=== PATIENT | female | born 1990 | race Two or more races ===

== ENCOUNTER 2024-09-24 18:05 | Inpatient (IN) | payer MEDICAID, OTHER ==
[~2024-09-24] VITALS: Ht 175.3 cm; Wt 101.2 kg
--- NOTE | 2024-09-24 18:37 | ED.PDOC ---
History of Present Illness HPI Comments 33-year-old female who came to ER for shortness of breath. Patient just delivered twin pregnancies 6 days ago, 1st 1 via normal delivery, 2nd 1 via C- section. Patient states she was preeclamptic during that time. Ever since the delivery, patient states she has been short of breath, and easily fatigued. Denies any fever or acute chest pains. Patient is saturating 98% on room air on arrival, the blood pressure of 150/98 mmHG Chief Complaint: Shortness of Breath Time Seen by MD: 18:37 Reviewed Notes: Nurses Notes Allergies: Coded Allergies: NO KNOWN ALLERGIES (Unverified , 09/24/24) Information Source: Patient Mode of Arrival: Ambulatory Severity: Moderate Timing: Days Duration: Since onset Prehospital treatment: None Medication Refill: For: Other Past Medical History Past Medical History (Other): Preeclampsia Surgical History: SPICE BLENDER History: Denies all SPICE BLENDER Hx Family History Family History: Reviewed,noncontributory to illness Social History Smoker: Non-Smoker Alcohol: Denies ETOH Use Drugs: Denies Drug Use Lives In: Home Constitutional: reports: fatigue, weakness; denies: chills, diaphoresis, fever, malaise, sweats, others EENTM: denies: blurred vision, double vision, ear bleeding, ear discharge, ear drainage, ear pain, ear ringing, eye pain, eye redness, hearing loss, mouth pain, mouth swelling, nasal discharge, nose bleeding, nose congestion, nose pain, photophobia, tearing, throat pain, throat swelling, voice changes, others Respiratory: reports: shortness of breath, SOB with excertion; denies: cough, hemoptysis, orthopnea, SOB at rest, stridor, wheezing, others Cardiovascular: denies: chest pain, dizzy spells, diaphoresis, Dyspnea on exertion, edema, irregular heart beat, left arm pain, lightheadedness, palpitations, PND, syncope, others Gastrointestinal: denies: abdomen distended, abdominal pain, blood streaked bowels, constipated, diarrhea, dysphagia, difficulty swallowing, hematemesis, melena, nausea, poor appetite, poor fluid intake, rectal bleeding, rectal pain, vomiting, others Genitourinary: denies: abnormal vagina bleeding, burning, dyspareunia, dysuria, flank pain, frequency, hematuria, incontinence, pain, , vagina discharge, urgency, others Neurological: denies: dizziness, fainting, headache, left sided numbness, left sided weakness, numbness, paresthesia, pre-existing deficit, right sided numbness, right sided weakness, seizure, speech problems, tingling, tremors, weakness, others Musculoskeletal: denies: back pain, gout, joint pain, joint swelling, muscle pain, muscle stiffness, neck pain, others Integumetry: denies: bruises, change in color, change in hair/nails, dryness, laceration, lesions, lumps, rash, wounds, others Allergic/Immunocompromised: denies: Difficulty Healing, Frequent Infections, Hives, Itching, others Hematologic/Lymphatic: denies: anemia, blood clots, easy bleeding, easy bruising, swollen glands, others Endocrine: denies: excessive hunger, excessive sweating, excessive thirst, excessive urination, flushing, intolerance to cold, intolerance to heat, unexplained weight gain, unexplained weight loss, others Psychiatric: denies: anxiety, bipolar disorder, depression, hopeless, panic disorder, schizophrenia, sleepless, suicidal, others Physical Exam Exam Comments BP elevated General Appearance: Moderate Distress, Normal HEENT: Normal ENT Inspection, Pharynx Normal, TMs Normal Neck: Full Range of Motion, Non-Tender, Normal, Normal Inspection Respiratory: Chest Non-Tender, Lungs Clear, No Accessory Muscle Use, No Respiratory Distress, Normal Breath Sounds Cardiovascular: No Edema, No JVD, No Murmur, No Gallop, Normal Peripheral Pulses, Regular Rate/Rhythm Breast Exam: Deferred Gastrointestinal: No Organomegaly, Non Tender, No Pulsatile Mass, Normal Bowel Sounds, Soft Genitalia: Deferred Pelvic: Deferred Rectal: Deferred Extremities: No calf tenderness, Normal capillary refill, Normal inspection, Normal range of motion, Non-tender, No pedal edema Musculoskeletal : Apperance: Normal Neurologic: Alert, community artist II-XII nml as Tested, No Motor Deficits, Normal Affect, Normal Mood, No Sensory Deficits Cerebellar Function: Normal Reflexes: Normal Skin: Dry, Normal Color, Warm Lymphatic: No Adenopathy Was a procedure done? Was a procedure done?: No Differential Dx Considerations may include: Anemia, electrolyte imbalance, pulmonary emboli X-Ray, Labs, Meds, VS Vital Signs Date Time Temp Pulse Resp B/P (MAP) Pulse Ox O2 Delivery O2 Flow Rate FiO2 09/24/24 22:12 165/101 09/24/24 21:55 163/99 09/24/24 20:00 77 17 98 Room Air 09/24/24 20:00 97.9 77 17 165/94 (117) 98 97.9 09/24/24 19:57 165/94 09/24/24 18:33 97.5 85 20 151/95 (113) 98 Lab Test 09/24/24 21:49 09/24/24 19:49 09/24/24 18:50 Range/Units Magnesium Level 2.1 2.1 1.6-2.6 mg/dL Troponin I High Sensitivity 39 *H 42 *H </=34 ng/L White Blood Count 8.9 4.4-10.8 10^3/uL Red Blood Count 3.64 L 4.0-5.20 10^6/uL Hemoglobin 8.2 L 12.2-16.2 g/dL Hematocrit 26.5 L 36.0-46.0 % Mean Corpuscular Volume 72.8 L 80.0-100.0 fL Mean Corpuscular Hemoglobin 22.5 L 28.0-32.0 pg Mean Corpuscular Hemoglobin Concent 30.9 L 32.0-36.0 g/dL Red Cell Distribution Width 18.1 H 11.8-14.3 % Platelet Count 305 140-450 10^3/uL Mean Platelet Volume 7.5 6.9-10.8 fL Neutrophils (%) (Auto) 80.0 37.0-80.0 % Lymphocytes (%) (Auto) 12.7 10.0-50.0 % Monocytes (%) (Auto) 5.9 0.0-12.0 % Eosinophils (%) (Auto) 1.1 0.0-7.0 % Basophils (%) (Auto) 0.3 0.0-2.0 % Neutrophils # (Auto) 7.1 1.6-8.6 10 ^3/uL Lymphocytes # (Auto) 1.1 0.4-5.4 10 ^3/uL Monocytes # (Auto) 0.5 0-1.3 10 ^3/uL Eosinophils # (Auto) 0.1 0-0.8 10 ^3/uL Basophils # (Auto) 0 0-0.2 10 ^3/uL Nucleated Red Blood Cells 0.3 % D-Dimer, Quantitative 10.47 H 0.0-0.49 mg/L FEU Sodium Level 142 136-145 mmol/L Potassium Level 3.8 3.5-5.1 mmol/L Chloride Level 110 H 98-107 mmol/L Carbon Dioxide Level 23 20-31 mmol/L Anion Gap 9 5-15 Blood Urea Nitrogen 13 9-23 mg/dL Creatinine 0.63 0.550-1.02 mg/dL Glomerular Filtration Rate Calc 121 >90 mL/min BUN/Creatinine Ratio 20.6 H 10.0-20.0 Serum Glucose 77 74-106 mg/dL Calcium Level 9.1 8.7-10.4 mg/dL Total Bilirubin 0.5 0.2-1.0 mg/dL Aspartate Amino Transferase (AST) 146 H 13-40 U/L Alanine Aminotransferase (ALT) 164 H 7-40 U/L Alkaline Phosphatase 146 H 46-116 U/L B-Type Natriuretic Peptide 310.79 0-100 pg/mL Total Protein 5.6 L 5.7-8.2 g/dL Albumin 3.5 3.2-4.8 g/dL Current Medications Medications (Trade) Dose Ordered Sig/Geraldo Route Start Time Stop Time Status Last Admin Sodium Chloride 500 ml @ 500 mls/hr Q1H ONCE IV 09/24/24 18:45 09/24/24 19:44 DC 09/24/24 19:55 Magnesium Sulfate/ Dextrose 100 ml @ 100 mls/hr Q1H IV 09/24/24 18:45 09/24/24 20:44 DC 09/24/24 20:07 Hydralazine HCl (Apresoline Injection) 10 mg ONCE ONCE IV 09/24/24 18:45 09/24/24 18:46 DC 09/24/24 19:57 Acetaminophen (Tylenol Tablet) 1,000 mg ONCE ONCE PO 09/24/24 20:00 09/24/24 20:01 DC 09/24/24 20:10 Lactated Ringer's 1,000 ml @ 75 mls/hr [id number] IV 09/24/24 21:30 09/24/24 22:10 DC 09/24/24 22:04 Magnesium Sulfate 1,000 ml @ 50 mls/hr Q20H IV 09/24/24 21:30 09/24/24 22:30 Magnesium Sulfate 100 ml @ 300 mls/hr ONCE ONCE IV 09/24/24 21:30 09/24/24 21:49 DC 09/24/24 22:03 Hydralazine HCl (Apresoline Injection) 5 mg Q15MP PRN IV 09/24/24 21:45 09/24/24 23:32 Time of 1ST Reevaluation: 18:34 Reevaluation 1ST: Unchanged Time of 2ND Reevaluation: 21:00 Reevaluation 2ND: Unchanged Consultation: any commodity sales deliverer (I discussed the case with Dr London any commodity sales deliverer and she recommends magnesium infusion and ICU admission ) Patient Education/Counseling: Diagnosis, Treatment Family Education/Counseling: No Family Present Departure 1 Departure Time of Disposition: 21:00 Impression: Primary Impression: Pre-eclampsia in period Disposition: ADMITTED INPATIENT Admit to: ICU Condition: Guarded Critical Care Note Critical Care Time?: Yes (35 min-critical care time only) Critical care comment: Total critical care time: Approximately 36 minutes Due to a high probability of clinically significant, life threatening deterioration, the patient required my highest level of preparedness to intervene emergently and I personally spent this critical care time directly and personally managing the patient. This critical care time included obtaining a history; examining the patient; pulse oximetry; ordering and review of studies; arranging urgent treatment with development of a management plan; evaluation of patient's response to treatment; frequent reassessment; and, discussions with other providers. This critical care time was performed to assess and manage the high probability of imminent, life-threatening deterioration that could result in multi-organ failure. It was exclusive of separately billable procedures and treating other patients. Stability Stability form required: No Heart Score Heart Score: Heart Score Response (Comments) Value History N/A 0 EKG N/A 0 Age N/A 0 Risk Factors N/A 0 Troponin N/A 0 Total 0 I personally scribed for GUILLERMO ALFONSO MD ([email or web address]) on 09/24/24 at 18:37. Electronically submitted by Michael Root ([email or web address]). GUILLERMO ALFONSO MD Sep 24, 2024 18:37
[2024-09-24 19:15] LABS: Basophils # (auto) 0 10 ^3/uL (0-0.2); Eosinophils # (auto) 0.1 10 ^3/uL (0-0.8); White Blood Cell 8.9 10^3/uL (4.4-10.8)
[2024-09-24] MEDS: IOHEXOL 350 MG/ML 100ML IJ ONE (19:15)
[2024-09-24 19:16] LABS: Basophils % (auto) 0.3 % (0.0-2.0); Eosinophils % (auto) 1.1 % (0.0-7.0); Hematocrit 26.5 % (36.0-46.0); Hemoglobin 8.2 g/dL (12.2-16.2); Lymphocytes # (auto) 1.1 10 ^3/uL (0.4-5.4); Lymphocytes % (auto) 12.7 % (10.0-50.0); Mean Corpuscular Hemoglobin 22.5 pg (28.0-32.0); Mean Corpuscular Hgb Conc. 30.9 g/dL (32.0-36.0); Mean Corpuscular Volume 72.8 fL (80.0-100.0); Monocytes # (auto) 0.5 10 ^3/uL (0-1.3); Monocytes % (auto) 5.9 % (0.0-12.0); Neutrophils # (auto) 7.1 10 ^3/uL (1.6-8.6); Nucleated Red Blood Cells % 0.3 %; Platelet Count (auto) 305 10^3/uL (140-450); Red Blood Cells 3.64 10^6/uL (4.0-5.20); Red Cell Distribution Width 18.1 % (11.8-14.3)
[2024-09-24 19:38] LABS: Albumin 3.5 g/dL (3.2-4.8); Anion Gap 9 (5-15); BUN/Creatinine Ratio 20.6 (10.0-20.0); Bilirubin, Total 0.5 mg/dL (0.2-1.0); Blood Urea Nitrogen 13 mg/dL (9-23); Calcium 9.1 mg/dL (8.7-10.4); Carbon Dioxide 23 mmol/L (20-31); Glucose 77 mg/dL (74-106); Magnesium 2.1 mg/dL (1.6-2.6); Potassium 3.8 mmol/L (3.5-5.1); Sodium 142 mmol/L (136-145)
[2024-09-24 19:54] LABS: Alanine Aminotransferase 164 U/L (7-40); Alkaline Phosphatase 146 U/L (46-116); Aspartate Aminotransferase 146 U/L (13-40); Chloride 110 mmol/L (98-107); Total Protein 5.6 g/dL (5.7-8.2)
[2024-09-24] MEDS: SODIUM CHLORIDE 0.9% 500 ML IV ONE (19:55)
[2024-09-24] MEDS: hydrALAZINE HCL 20 MG/ML VL IV ONE (19:57)
--- NOTE | 2024-09-24 19:57 | DVH ---
Procedure: CT CT ANGIO CHEST CONTRAST Reason for study/Clinical History: SOB s/p vaginal bleeding Comparison Study: None available at time of dictation. Exam Date: 09/24/2024 07:23 PM Radiation Dose Information: CT Dose: CTDI volume is 37.38 mGy. Dose-length product is 911.06 mGy*cm Contrast: Type of contrast: Omnipaque 350 Contrast inject: 100 mL Contrast wasted:0 TECHNIQUE: After the uneventful administration of intravenous contrast intravenously, CT imaging was performed through the chest. Coronal and sagittal reformations were performed by the technologist. Co margret MIP were obtained and studied. FINDINGS: Lower Neck: Visualized portions of the thyroid gland are unremarkable. Aorta and Vasculature: Normal caliber of thoracic aorta. Pulmonary artery at the upper limits of norm al 3.6 cm. There are no filling defects in the main or secondary tertiary branches of the pulmonary a rtery to suggest pulmonary emboli. There are no findings of pulmonary artery hypertension at this jovan e. Small bilateral pleural effusions are noted slightly larger on the right than the left. Lymph Nodes: No enlarged intrathoracic lymph nodes. Mediastinum: Heart size is normal. There is no pericardial effusion. The esophagus is unremarkable. Lungs: No focal consolidation, pleural effusion or significant pneumothorax. No suspicious pulmonary nodule or mass. Small bilateral pleural effusions slightly larger on the right than the left. Musculoskeletal: No acute osseous abnormality. Upper abdomen: Limited portions of the upper abdomen are unremarkable. IMPRESSION: 1. .No pulmonary emboli noted at this time. 2. Pulmonary artery at the upper limits of normal 3.6 cm. 3. Small bilateral pleural effusions slightly larger on the right than the left. HS:Y All CT scans at this medical facility are performed using dose modulation techniques as appropriate t o a performed exam including the following: Automated exposure control was utilized; adjustment of th e MA and/or KV according to patient size; and use of iterative reconstruction technique.
[2024-09-24] MEDS: MAGNESIUM SULFATE 1GM/100ML 100 ML IV SCH (20:07)
[2024-09-24] MEDS: ACETAMINOPHEN 325 MG TAB PO ONE (20:10)
[2024-09-24] MEDS: MAGNESIUM SULFATE 1GM/100ML 100 ML IV ONE (20:17)
[2024-09-24 21:00] VITALS: PULSE 81; O2SAT 99
[2024-09-24] MEDS: MAGNESIUM SULFATE 40MG/ML 1,000 ML IV ONE (21:44)
[2024-09-24] MEDS: MAGNESIUM SULFATE 100 ML IV ONE ×2 (21:44→22:03)
[2024-09-24] MEDS: hydrALAZINE HCL 20 MG/ML VL IV PRN (21:55)
[2024-09-24] MEDS: LACTATED RINGER'S 1,000 ML IV SCH (22:04)
[2024-09-24] MEDS: MAGNESIUM SULFATE 40MG/ML 1,000 ML IV SCH (22:30)
[2024-09-24] MEDS ORDERED: MORPHINE SULFATE INJ 2 MG/ml SYRG IV PRN (22:30)
[2024-09-24] MEDS ORDERED: NITROGLYCERIN 0.4 MG SL TAB SL PRN (22:30)
[2024-09-24] MEDS: LACTATED RINGER'S 1,000 ML IV ONE (22:50)
--- NOTE | 2024-09-24 22:52 | DVH ---
CHEST RADIOGRAPH Indication: SOB Technique: Single frontal view of the chest was obtained Comparison: None Findings/ IMPRESSION: Mild cardiomegaly. Moderate pulmonary vascular congestion. Right basilar atelectasis versus developi ng airspace disease. Small right-sided pleural effusion. 1.
[2024-09-24] MEDS ORDERED: LORazepam 2MG/ML-1ML VIAL IV PRN (23:00)
[2024-09-24] MEDS ORDERED: ONDANSETRON HCL 4 MG/2 ML VIAL IV PRN (23:15)
[2024-09-24] MEDS: IBUPROFEN 800 MG TAB PO PRN (23:31)
--- NOTE | 2024-09-25 00:14 | DVHHPRES ---
History of Present Illness Resident Creating Document: ANJANA BAEZ RESIDENT History of Present Illness Patient is a 33-year-old female with no significant past medical history came to the ED with a chief complaint of shortness of breath. Patient delivered twins on saturday09/18/24, one delivered vaginally and the other at 36-1/2 weeks gestation because of high blood pressure likely preeclampsia. Patient [id number] reports that since the time of delivery she started having shortness of breath and high blood pressures. She was discharged from hospital in [place] on Saturday but reported shortness of breath even at home associated with the orthopnea. Since yesterday patient reports 2 episodes of vomiting, indigestion and decreased appetite. Denies chest pain, headache, dizziness, blurry vision. Chest x-ray shows mild cardiomegaly with moderate pulmonary vascular condition, right basilar atelectasis versus developing airspace disease, right sided ple ural effusion. D-dimer elevated. CT chest angio shows no pulmonary emboli, pulmonary artery diameter at upper limit of normal, small bilateral pleural effusion greater on right than the left. Past medical history: None Past surgical history: 1 Social history: Occasional weed smoking, alcohol consumption. Denies tobacco smoking, drug use. OBGYN history: [id number] Home medications: None Review of Systems Review of Systems Patient was seen and examined at the bedside Alert and oriented to time, place and person Patient uncomfortable and restless in bed and reports pain at the surgical site and shortness of breath but saturating more than 95% on room air. Denies chest pain, palpitation, dizziness, nausea, vomiting blood pressure 160/90 mmHg , HR 85 per minute regular Allergies: Coded Allergies: NO KNOWN ALLERGIES (Unverified , 09/24/24) Medications Current Medications Medications Dose Ordered Sig/Geraldo Route Start Time Stop Time Status Last Admin Dose Admin Magnesium Sulfate 1,000 ml @ 50 mls/hr Q20H IV 09/24/24 21:30 09/24/24 22:30 50 MLS/HR Hydralazine HCl 5 mg Q15MP PRN IV 09/24/24 21:45 09/24/24 23:32 5 MG Nitroglycerin 0.4 mg Q5MINP PRN SL 09/24/24 22:30 Morphine Sulfate 2 mg Q30M PRN IV 09/24/24 22:30 Lorazepam 4 mg ONCE PRN IV 09/24/24 23:00 Ondansetron HCl 4 mg Q4HP PRN IV 09/24/24 23:15 Ibuprofen 800 mg Q8HP PRN PO 09/24/24 23:15 09/24/24 23:31 800 MG Acetaminophen/ Hydrocodone Bitart 2 tab Q4HPRN PRN PO 09/24/24 23:15 Exam Vital Signs Vital Signs Date Time Temp Pulse Resp B/P (MAP) Pulse Ox O2 Delivery O2 Flow Rate FiO2 09/24/24 23:52 22 Room Air 0 09/24/24 23:32 156/96 09/24/24 20:00 77 98 09/24/24 20:00 97.9 97.9 Exam Physical Examination Gen - no pallor, no icterus, no cyanosis, no clubbing, no LAD, 1+ B/L pedal edema . Skin - Patients skin is warm and dry. HEENT - normocephalic, atraumatic, dry mucous membranes. Neck - full ROM, no LAD, elevated JVP with a pulsation seen above mid SCM. Pulmonary - decreased breath sounds on the right as compared to the left, no crackles , no wheezing cardiovascular - normal S1,S2 heard. no murmurs heard. peripheral pulses radial 2+, pedal 2+. capillary refill normal <2 secs. GI - soft abdomen with tenderness to palpation in lower abdomen . no hepatospleenomegaly. Bowel sounds normoactive Neurological - Patient is A/O X 3. Bilateral upper extremity strength 5/5, bilateral lower extremity strength 5/5, no facial droop, normal speech, no tremor, no sensory deficiets. Labs/Xrays Labs Test 09/24/24 21:49 09/24/24 19:49 09/24/24 18:50 Range/Units Magnesium Level 2.1 1.6-2.6 mg/dL Troponin I High Sensitivity 39 *H </=34 ng/L White Blood Count 8.9 4.4-10.8 10^3/uL Red Blood Count 3.64 L 4.0-5.20 10^6/uL Hemoglobin 8.2 L 12.2-16.2 g/dL Hematocrit 26.5 L 36.0-46.0 % Mean Corpuscular Volume 72.8 L 80.0-100.0 fL Mean Corpuscular Hemoglobin 22.5 L 28.0-32.0 pg Mean Corpuscular Hemoglobin Concent 30.9 L 32.0-36.0 g/dL Red Cell Distribution Width 18.1 H 11.8-14.3 % Platelet Count 305 140-450 10^3/uL Mean Platelet Volume 7.5 6.9-10.8 fL Neutrophils (%) (Auto) 80.0 37.0-80.0 % Lymphocytes (%) (Auto) 12.7 10.0-50.0 % Monocytes (%) (Auto) 5.9 0.0-12.0 % Eosinophils (%) (Auto) 1.1 0.0-7.0 % Basophils (%) (Auto) 0.3 0.0-2.0 % Neutrophils # (Auto) 7.1 1.6-8.6 10 ^3/uL Lymphocytes # (Auto) 1.1 0.4-5.4 10 ^3/uL Monocytes # (Auto) 0.5 0-1.3 10 ^3/uL Eosinophils # (Auto) 0.1 0-0.8 10 ^3/uL Basophils # (Auto) 0 0-0.2 10 ^3/uL Nucleated Red Blood Cells 0.3 % D-Dimer, Quantitative 10.47 H 0.0-0.49 mg/L FEU Sodium Level 142 136-145 mmol/L Potassium Level 3.8 3.5-5.1 mmol/L Chloride Level 110 H 98-107 mmol/L Carbon Dioxide Level 23 20-31 mmol/L Anion Gap 9 5-15 Blood Urea Nitrogen 13 9-23 mg/dL Creatinine 0.63 0.550-1.02 mg/dL Glomerular Filtration Rate Calc 121 >90 mL/min BUN/Creatinine Ratio 20.6 H 10.0-20.0 Serum Glucose 77 74-106 mg/dL Calcium Level 9.1 8.7-10.4 mg/dL Total Bilirubin 0.5 0.2-1.0 mg/dL Aspartate Amino Transferase (AST) 146 H 13-40 U/L Alanine Aminotransferase (ALT) 164 H 7-40 U/L Alkaline Phosphatase 146 H 46-116 U/L B-Type Natriuretic Peptide 310.79 0-100 pg/mL Total Protein 5.6 L 5.7-8.2 g/dL Albumin 3.5 3.2-4.8 g/dL Assessment/Plan Assessment/Plan Assessment and plan # Acute hypoxic respiratory failure # 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 - On hydralazine prn with goal SBP<160mmhg and DBP<90mmhg - As per OBGYN Magnesium loading dose 4gm given, currently on magnesium 2g/hr IV - BNP elevated - Furosemide 40mg PO one dose given - cardiology consult pending # Microcytic hyprochromic anemia - iron panel pending - no active bleeding - monitor H&H # Transaminitis - monitor liver function Goals of care discussed with the patient and the mother for over 27 minutes. Full code Plan discussed with Dr. Mcdonough Plan discussed with: Patient, Other (mother) My Orders Orders - ANJANA BAEZ RESIDENT Procedure Category Date Status Time Admit ADMIT 09/24/24 Transmitted 22:17 Nitroglycerin PHA 09/24/24 In Process Sublingual (Ntrostat 22:30 Morphine Sulfate PHA 09/24/24 In Process Injection 22:30 Oxygen By Nasal RT 09/24/24 Transmitted Cannula 22:17 Stat Ekg For Chest VCIKY 09/24/24 In Process Pain 22:17 Loans Consultant For VICKY 09/24/24 In Process 24 Hours 22:17 Echo 2d Mode Cardiac US 09/24/24 Logged DOP 22:19 Chest Xray 1 View XY 09/24/24 Resulted 22:19 * Cardiology Consult CONS 09/24/24 Transmitted 22:19 Urine LAB 09/24/24 Logged Protein/Creatinine Urine Sodium LAB 09/24/24 Logged 22:19 Urinalysis LAB 09/24/24 Logged 22:19 Covid19 Antigen Joanna LAB 09/24/24 Logged Rapid Influenza A&B LAB 09/24/24 Logged 22:24 Code Status CODE 09/24/24 Transmitted 22:26 Transfer Orders XFER 12/19/24 Transmitted 23:28 Date of Service: Sep 24, 2024 Billing Provider: CHARAN MCDONOUGH MD Common Visit Codes: 86669-DYSKJEK INP/OBS CARE (HIGH) Secondary Visit Codes: 83657-[id number] CARE PLAN 30 MINUTES ANJANA BAEZ RESIDENT Sep 25, 2024 00:14 CHARAN MCDONOUGH MD Sep 25, 2024 21:03
[2024-09-25 02:07] LABS: Urine Bacteria None Seen /hpf (None Seen)
[2024-09-25] MEDS: FUROSEMIDE 40 MG TAB PO ONE (02:17)
[2024-09-25 02:29] LABS: Protein, Urine 10.3 mg/dL (1-14)
[2024-09-25 02:32] LABS: Creatinine, Urine 32.21 mg/dL (30.0-125.0); Urine Protein/Creatinine Ratio 0.32
[2024-09-25 02:51] LABS: Urine Blood Negative /uL (Negative); Urine Clarity Clear (Clear); Urine Mucus FEW (None Seen); Urine Protein, UAD Negative (Negative); Urine Specific Gravity 1.017 (1.001-1.035); Urine Squamous Epithelial Cell None Seen /hpf (<5); Urine Urobilinogen Normal (Negative); Urine WBC 2 /hpf (0 - 5); Urine pH 5.5 (5.0-9.0)
[2024-09-25 02:52] LABS: Urine Color STRAW (Yellow)
[2024-09-25 02:53] LABS: Amphetamine Screen, Urine Neg (NEGATIVE); Barbiturate Scree,Urine Neg (NEGATIVE); Benzodiazephine Screen, Urine Neg (NEGATIVE); Cannabinoid Screen, Urine Neg (NEGATIVE); Cocaine Screen, Urine Neg (NEGATIVE); Opiate Scree,Urine Neg (NEGATIVE); Phencyclidine Screen, Urine Neg (NEGATIVE)
[2024-09-25 03:15] LABS: Rapid Influenza A Negative (Negative); Rapid Influenza B Negative (Negative)
[2024-09-25 03:16] LABS: COVID19 ANTIGEN SOFIA FIA NEGATIVE (NEGATIVE)
[2024-09-25] MEDS: HYDROcodone-ACET 5/325MG TAB PO PRN (03:24)
[2024-09-25 07:30] VITALS: PULSE 86; RESP 22; O2SAT 97
[2024-09-25 08:48] LABS: Basophils # (auto) 0 10 ^3/uL (0-0.2); Eosinophils # (auto) 0.1 10 ^3/uL (0-0.8); Neutrophils % (auto) 77.6 % (37.0-80.0); Nucleated Red Blood Cells % 0.1 %
[2024-09-25 08:49] LABS: Basophils % (auto) 0.5 % (0.0-2.0); Hematocrit 26.2 % (36.0-46.0); Hemoglobin 8.2 g/dL (12.2-16.2); Lymphocytes # (auto) 1.4 10 ^3/uL (0.4-5.4); Lymphocytes % (auto) 15.1 % (10.0-50.0); Mean Corpuscular Hemoglobin 22.6 pg (28.0-32.0); Mean Corpuscular Hgb Conc. 31.1 g/dL (32.0-36.0); Mean Corpuscular Volume 72.7 fL (80.0-100.0); Monocytes # (auto) 0.5 10 ^3/uL (0-1.3); Monocytes % (auto) 5.8 % (0.0-12.0); Platelet Count (auto) 304 10^3/uL (140-450); Red Blood Cells 3.61 10^6/uL (4.0-5.20); Red Cell Distribution Width 18.4 % (11.8-14.3)
[2024-09-25 08:53] LABS: Albumin 3.4 g/dL (3.2-4.8); Anion Gap 8 (5-15); BUN/Creatinine Ratio 12.7 (10.0-20.0); Carbon Dioxide 22 mmol/L (20-31); Glucose 84 mg/dL (74-106); Potassium 3.5 mmol/L (3.5-5.1); Sodium 140 mmol/L (136-145)
[2024-09-25 08:54] LABS: % Iron Saturation 5.6 % (15-50); Bilirubin, Total 0.5 mg/dL (0.2-1.0); HDL Cholesterol 53 mg/dL (40-59)
[2024-09-25 08:58] LABS: Alanine Aminotransferase 223 U/L (7-40); Alkaline Phosphatase 138 U/L (46-116); Aspartate Aminotransferase 167 U/L (13-40); Blood Urea Nitrogen 8 mg/dL (9-23); Calcium 8.2 mg/dL (8.7-10.4); Chloride 110 mmol/L (98-107); Cholesterol 243 mg/dL (< 200); LDL Cholesterol 166 mg/dL (< 100); Total Protein 5.6 g/dL (5.7-8.2); Triglycerides 170 mg/dL (< 150)
[2024-09-25 10:00] VITALS: PULSE 87; RESP 18; O2SAT 98
[2024-09-25] MEDS: NIFEdipine ER 30 MG TAB PO SCH (10:49)
[2024-09-25] MEDS: LABETALOL HCL 200 MG TAB PO SCH (10:49)
--- NOTE | 2024-09-25 11:22 | DVHINCON2 ---
DATE OF CONSULTATION: 09/25/2024 REASON FOR CONSULTATION: preeclampsia. HISTORY OF PRESENT ILLNESS: The patient is a 33-year-old female admitted for shortness of breath to emergency room. The patient delivered twin six days ago at [facility], one via vaginal, second via . She was preeclamptic during the time of delivery. The patient was discharged home. She started having shortness of breath and fatigued. Subsequently, the patient presented to ER. Blood pressure was 150/98. Her liver enzymes were elevated. The patient also had pulmonary congestion for which she was given Lasix. PAST MEDICAL HISTORY: None. PAST SURGICAL HISTORY: . SOCIAL HISTORY: None. FAMILY HISTORY: None. REVIEW OF SYSTEMS: CONSTITUTIONAL: Reports fatigue, weakness. RESPIRATORY: Reports shortness of breath. CARDIOVASCULAR: Denies chest pain. GASTROINTESTINAL: Denies constipation or diarrhea. GENITOURINARY: Denies abnormal vaginal bleeding, no dysuria. NEUROLOGICAL: Denies dizziness, fainting. PSYCHIATRIC: Denies anxiety or bipolar depression. PHYSICAL EXAMINATION: VITAL SIGNS: Stable at the time of this consultation. Blood pressure was 150/70. The patient has been on mag and given hydralazine. GENERAL APPEARANCE: Appears in no distress. CARDIOVASCULAR: Regular rate and rhythm. LUNGS: Clear to auscultation. BREASTS: Symmetrical. No masses. ABDOMEN: Soft, nontender. Incision appears normal. No drainage, no erythema. PELVIC: Scant lochia. EXTREMITIES: No clubbing, cyanosis or edema. IMPRESSION: * Status post primary with severe preeclampsia. * Anemia. * Pulmonary edema. RECOMMENDATION: Continue the patient on mag for 24 hours. Mag levels every 6 hours. Keep mag level under 6. We will start the patient on labetalol 300 b.i.d., Lasix for lungs, pulmonary congestion given. Thank you very much for this consultation. We will follow on-call physician for Saturday and Saturday, will call the patient. DO HARSHA Lara TID: [id number] RECEIPT: [id number]
--- NOTE | 2024-09-25 13:19 | DVHCONRES ---
Date Seen: Sep 25, 2024 Resident Creating Document: LAURENT WERNER RESIDENT Referring Physician Dr. Abbey Hopkins History of Present Illness This is a 33 year old female with no significant past medical history presented to the ED with shortness of breath and unable to lie flat. Patient is [id number] who just had twin gestation and delivered via vaginally for one and c/s for the other twin on 09/18/2024 at 36 .5 weeks gestation. According to patient, after the delivery of first twin, her BP went up. She vomited, 2nd baby was noted to be breached; therefore, they decided to take her for . Post c/s was uncomplicated mother and babies were discharge home 09/21/24. Patient mentioned that she actually started feeling short of breath at the hospital but she did not mention this to the attending physician. When she got home, she realized that the shortness of breath was more pronounced and unable to lie flat. Therefore she came into the ED for further evaluation. This is her first of such experience. She has had 2 previous children without any post delivery event like this one. Patient mentioned that since 09/24/2024 she had 2 episodes of vomiting; and unable to keep anything down. She denies chest pain, headache, dizziness, blurry vision. Initial vitals were: Temp: 97.5--98,pulse: 85--70, RR: 12-20, BP:151/95-135/85. Blood work shows hgb: 8.2, Hct: 26.5, BNP: 310, elevated triglyceride, (170), cholesterol 243, LDL: 166, HDL: 53, troponin 42,39. Chest x-ray showed mild cardiomegaly with moderate pulmonary vascular condition, right basilar atelectasis versus developing airspace disease, right sided pleural effusion. D-dimer elevated. CT chest angio did not reveal any pulmonary emboli, pulmonary artery diameter at upper limit of normal, small bilateral pleural effusion greater on right than the left. Echo pending Past Medical History No past medical history OBGYN history: [id number] Past Surgical History Past surgical history: 1 Family History DM Social History Social history: Occasional weed smoking, alcohol consumption. Denies tobacco smoking, drug use. Home medications: None Allergies: Coded Allergies: NO KNOWN ALLERGIES (Unverified , 09/24/24) Current Medications Current Medications Medications (Trade) Dose Ordered Sig/Geradlo Route PRN Reason Start Time Stop Time Status Last Admin Magnesium Sulfate/ Dextrose 100 ml @ 100 mls/hr Q1H IV 09/24/24 18:45 09/24/24 20:44 DC 09/24/24 20:07 Lactated Ringer's 1,000 ml @ 75 mls/hr [id number] IV 09/24/24 21:30 09/24/24 22:10 DC 09/24/24 22:04 Magnesium Sulfate 1,000 ml @ 50 mls/hr Q20H IV 09/24/24 21:30 09/24/24 22:30 Hydralazine HCl (Apresoline Injection) 5 mg Q15MP PRN IV SBP>160 or DBP>95 09/24/24 21:45 09/24/24 23:32 Nitroglycerin (Ntrostat Sublingual) 0.4 mg Q5MINP PRN SL FOR CHEST PAIN 09/24/24 22:30 Morphine Sulfate 2 mg Q30M PRN IV FOR CHEST PAIN 09/24/24 22:30 Lorazepam (Ativan Inj) 4 mg ONCE PRN IV SEIZURES 09/24/24 23:00 Ondansetron HCl (Zofran) 4 mg Q4HP PRN IV NAUSEA / VOMITING 09/24/24 23:15 Ibuprofen (Motrin Tablet) 800 mg Q8HP PRN PO BREAKTHROUGH PAIN 09/24/24 23:15 09/24/24 23:31 Acetaminophen/ Hydrocodone Bitart (Commack 5/325MG Tab) 2 tab Q4HPRN PRN PO FOR PAIN 7-10 09/24/24 23:15 09/25/24 10:47 Nifedipine (Procardia Xl (Time-Release)) 30 mg DAILY PO 09/25/24 10:00 09/25/24 10:49 Labetalol HCl (Normodyne Tablet) 300 mg Q12HR PO 09/25/24 10:00 09/25/24 10:49 Vital Signs Vital Signs Date Time Temp Pulse Resp B/P (MAP) Pulse Ox O2 Delivery O2 Flow Rate FiO2 09/25/24 12:11 70 135/85 09/25/24 11:00 12 97 09/25/24 11:00 Room Air 0 09/25/24 10:00 98.0 98.0 09/25/24 10:00 21 Labs/Diagnostic Data Labs Test 09/25/24 08:11 09/25/24 02:00 09/25/24 00:48 09/24/24 21:49 Range/Units White Blood Count 9.0 4.4-10.8 10^3/uL Red Blood Count 3.61 L 4.0-5.20 10^6/uL Hemoglobin 8.2 L 12.2-16.2 g/dL Hematocrit 26.2 L 36.0-46.0 % Mean Corpuscular Volume 72.7 L 80.0-100.0 fL Mean Corpuscular Hemoglobin 22.6 L 28.0-32.0 pg Mean Corpuscular Hemoglobin Concent 31.1 L 32.0-36.0 g/dL Red Cell Distribution Width 18.4 H 11.8-14.3 % Platelet Count 304 140-450 10^3/uL Mean Platelet Volume 7.5 6.9-10.8 fL Neutrophils (%) (Auto) 77.6 37.0-80.0 % Lymphocytes (%) (Auto) 15.1 10.0-50.0 % Monocytes (%) (Auto) 5.8 0.0-12.0 % Eosinophils (%) (Auto) 1.0 0.0-7.0 % Basophils (%) (Auto) 0.5 0.0-2.0 % Neutrophils # (Auto) 7.0 1.6-8.6 10 ^3/uL Lymphocytes # (Auto) 1.4 0.4-5.4 10 ^3/uL Monocytes # (Auto) 0.5 0-1.3 10 ^3/uL Eosinophils # (Auto) 0.1 0-0.8 10 ^3/uL Basophils # (Auto) 0 0-0.2 10 ^3/uL Nucleated Red Blood Cells 0.1 % Reticulocyte Count (auto) 5.62 H 0.5-1.5 % Sodium Level 140 136-145 mmol/L Potassium Level 3.5 3.5-5.1 mmol/L Chloride Level 110 H 98-107 mmol/L Carbon Dioxide Level 22 20-31 mmol/L Anion Gap 8 5-15 Blood Urea Nitrogen 8 L 9-23 mg/dL Creatinine 0.63 0.550-1.02 mg/dL Glomerular Filtration Rate Calc 121 >90 mL/min BUN/Creatinine Ratio 12.7 10.0-20.0 Serum Glucose 84 74-106 mg/dL Hemoglobin A1c 4.9 <5.7 % A1C Calcium Level 8.2 L 8.7-10.4 mg/dL Magnesium Lvl (Mg Sulfate Therapy) 4.22 4.0-7.1 mg/dL Iron Level 23 L 50-170 ug/dL Total Iron Binding Capacity 413 250-425 ug/dL Percent Iron Saturation 5.6 L 15-50 % Ferritin 14.8 10-291 ng/mL Total Bilirubin 0.5 0.2-1.0 mg/dL Aspartate Amino Transferase (AST) 167 H 13-40 U/L Alanine Aminotransferase (ALT) 223 H 7-40 U/L Alkaline Phosphatase 138 H 46-116 U/L Total Protein 5.6 L 5.7-8.2 g/dL Albumin 3.4 3.2-4.8 g/dL Triglycerides Level 170 H < 150 mg/dL Cholesterol Level 243 H < 200 mg/dL LDL Cholesterol 166 H < 100 mg/dL HDL Cholesterol 53 40-59 mg/dL Thyroid Stimulating Hormone (TSH) 1.87 0.55-4.78 uIU/mL Influenza Type A Antigen Negative Negative Influenza Type B Antigen Negative Negative SARS-CoV-2 Antigen (Rapid) Negative NEGATIVE Urine Color Straw Yellow Urine Clarity Clear Clear Urine pH 5.5 5.0-9.0 Urine Specific [place] 1.017 1.001-1.035 Urine Protein Negative Negative Urine Ketones 1+ H Negative Urine Blood Negative Negative /uL Urine Nitrite Negative Negative Urine Bilirubin Negative Negative Urine Urobilinogen Normal Negative mg/dL Urine Leukocyte Esterase Negative Negative /uL Urine RBC <1 0 - 4 /hpf Urine WBC 2 0 - 5 /hpf Urine Squamous Epithelial Cells None seen <5 /hpf Urine Bacteria None seen None Seen /hpf Urine Mucus Few None Seen Urine Creatinine 32.21 30.0-125.0 mg/dL Urine Protein/Creatinine Ratio 0.32 Urine Sodium 114 40-220 mmol/L Urine Glucose Normal Normal mg/dL Urine Total Protein 10.3 1-14 mg/dL Urine Opiates Screen Neg NEGATIVE Urine Fentanyl Screen Neg NEGATIVE Urine Barbiturates Screen Neg NEGATIVE Urine Phencyclidine Screen Neg NEGATIVE Urine Amphetamines Screen Neg NEGATIVE Urine Benzodiazepines Screen Neg NEGATIVE Urine Cocaine Screen Neg NEGATIVE Urine Cannabinoids Screen Neg NEGATIVE Magnesium Level 2.1 1.6-2.6 mg/dL Test 09/24/24 19:49 09/24/24 18:50 Range/Units Troponin I High Sensitivity 39 *H </=34 ng/L D-Dimer, Quantitative 10.47 H 0.0-0.49 mg/L FEU B-Type Natriuretic Peptide 310.79 0-100 pg/mL Assessment Rule out peripartum cardiomyopathy --> BNP:310 --> [id number], delivered on 09/18/2024 --> Echo pending Hypertensive urgency --> BP: 151/95, 164/105 --> Labetalol: 300mg bid ---> Nifedipine 30 mg daily Nstemi type II secondary to hypertensive urgency --> Troponin: 42--> 39 --> Control bp history Preeclampsia --> Elevate bp 150/98 --> urine protein order --> 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 --> Chest x-ray: Mild cardiomegaly. Moderate pulmonary vascular congestion. Right basilar atelectasis versus developing airspace disease. Small right-sided pleural effusion. --> s/p lasix Critical care time was more than 45 minutes Thank you for allowing us to participate in the care of this patient. Please call if you have any questions or concerns. Plan discussed with: Patient Visit Coding Cardiology RES Date of Service: Sep 25, 2024 Billing Provider: MARIA D MEDRANO MD Cardiology Common Codes: [id number] INP/OBS CARE (High) Cardiology Consultation Codes: [id number] CONSULT <60MIN LAURENT WERNER RESIDENT Sep 25, 2024 13:19
--- NOTE | 2024-09-25 14:37 | DVHPN2 ---
Subjective feels better than admission Changes from previous H/P or p: No Changes Objective Vitals Vital Signs Date Time Temp Pulse Resp B/P (MAP) Pulse Ox O2 Delivery O2 Flow Rate FiO2 09/25/24 12:11 70 135/85 09/25/24 12:00 16 Room Air 0 09/25/24 11:00 97 09/25/24 10:00 98.0 98.0 09/25/24 10:00 21 Intake/Output Intake and Output 09/25/24 07:00 Intake Total 575 ml Output Total 3305 ml Balance -2730 ml Intake IV Total 575 ml Output Urine Total 3305 ml General Appearance: Alert, Oriented X3, No acute distress Lungs: Clear to auscultation, Normal air movement Cardiovascular: Regular rate, Normal S1, Normal S2 Abdomen: Normal bowel sounds, Soft, No tenderness Neuro: Normal gait, Normal speech, Strength at 5/5 X4 ext Psych/Mental Status: Mental status NL Medications Current Medications Medications Dose Ordered Sig/Geraldo Route Start Time Stop Time Status Last Admin Dose Admin Magnesium Sulfate 1,000 ml @ 50 mls/hr Q20H IV 09/24/24 21:30 09/24/24 22:30 50 MLS/HR Hydralazine HCl 5 mg Q15MP PRN IV 09/24/24 21:45 09/24/24 23:32 5 MG Nitroglycerin 0.4 mg Q5MINP PRN SL 09/24/24 22:30 Morphine Sulfate 2 mg Q30M PRN IV 09/24/24 22:30 Lorazepam 4 mg ONCE PRN IV 09/24/24 23:00 Ondansetron HCl 4 mg Q4HP PRN IV 09/24/24 23:15 Ibuprofen 800 mg Q8HP PRN PO 09/24/24 23:15 09/24/24 23:31 800 MG Acetaminophen/ Hydrocodone Bitart 2 tab Q4HPRN PRN PO 09/24/24 23:15 09/25/24 10:47 2 TAB Nifedipine 30 mg DAILY PO 09/25/24 10:00 09/25/24 10:49 30 MG Labetalol HCl 300 mg Q12HR PO 09/25/24 10:00 09/25/24 10:49 300 MG Laboratory Results Laboratory Tests 09/25/24 08:11 Chemistry Test 09/24/24 18:50 09/24/24 21:49 09/25/24 08:11 Albumin 3.5 g/dL (3.2-4.8) 3.4 g/dL (3.2-4.8) Calcium Level 9.1 mg/dL (8.7-10.4) 8.2 mg/dL (8.7-10.4) L Magnesium Level 2.1 mg/dL (1.6-2.6) 2.1 mg/dL (1.6-2.6) Total Protein 5.6 g/dL (5.7-8.2) L 5.6 g/dL (5.7-8.2) L Coagulation Test 09/24/24 18:50 D-Dimer, Quantitative 10.47 mg/L FEU (0.0-0.49) H Lipid panel Test 09/25/24 08:11 Cholesterol Level 243 mg/dL (< 200) H HDL Cholesterol 53 mg/dL (40-59) Triglycerides Level 170 mg/dL (< 150) H Cardiac Markers Test 09/24/24 18:50 B-Type Natriuretic Peptide 310.79 pg/mL (0-100) LFT Test 09/24/24 18:50 09/25/24 08:11 Alanine Aminotransferase (ALT) 164 U/L (7-40) H 223 U/L (7-40) H Alkaline Phosphatase 146 U/L (46-116) H 138 U/L (46-116) H Aspartate Amino Transferase (AST) 146 U/L (13-40) H 167 U/L (13-40) H Total Bilirubin 0.5 mg/dL (0.2-1.0) 0.5 mg/dL (0.2-1.0) HgA1c, TSH Test 09/25/24 08:11 Hemoglobin A1c 4.9 % A1C (<5.7) Thyroid Stimulating Hormone (TSH) 1.87 uIU/mL (0.55-4.78) Urinalysis Test 09/25/24 00:48 Urine Color Straw (Yellow) Urine Clarity Clear (Clear) Urine pH 5.5 (5.0-9.0) Urine Specific [place] 1.017 (1.001-1.035) Urine Protein Negative (Negative) Urine Ketones 1+ (Negative) H Urine Blood Negative /uL (Negative) Urine Nitrite Negative (Negative) Urine Bilirubin Negative (Negative) Urine Urobilinogen Normal mg/dL (Negative) Urine Leukocyte Esterase Negative /uL (Negative) Urine RBC <1 /hpf (0 - 4) Urine WBC 2 /hpf (0 - 5) Urine Squamous Epithelial Cells None seen /hpf (<5) Urine Bacteria None seen /hpf (None Seen) Urine Mucus Few (None Seen) Urine Creatinine 32.21 mg/dL (30.0-125.0) Urine Protein/Creatinine Ratio 0.32 Urine Sodium 114 mmol/L (40-220) Urine Glucose Normal mg/dL (Normal) Urine Total Protein 10.3 mg/dL (1-14) Labs and/or images reviewed: Labs reviewed by me, Image(s) reviewed by me Assessment/Plan Assessment/Plan chf- secondary to diastolic dysfn- given r/o cardiomyopathy anemia- secondary to recent surgery/ add iron elevated lft- evaluate/ secondary to chf/normal platelets/elevated ret count Plan discussed with: Patient, Other My Orders Orders - ONELIA CASTELLANO MD Procedure Category Date Status Time Cardiac DIET 09/25/24 Transmitted Diet-2gna,Lofat,Lochol Lunch Date of Service: Sep 25, 2024 Billing Provider: ONELIA CASTELLANO MD Common Visit Codes: [id number] INP/OBS CARE (MOD) ONELIA CASTELLANO MD Sep 25, 2024 14:37
[2024-09-25] MEDS ORDERED: CHLORTHALIDONE 25 MG TAB PO ONE (14:45)
[2024-09-25] MEDS: CHLORTHALIDONE 25 MG TAB PO ONE (15:50)
[2024-09-25 19:35] VITALS: PULSE 87; RESP 18; TEMP 98.7; O2SAT 98
--- NOTE | 2024-09-25 19:47 | DVHSR ---
APPROVED REPORT EXAM: LIMITED Two-dimensional and M-mode echocardiogram with Doppler and color Doppler. Blood Pressure: 129/72 mmHg INDICATION SOB RISK FACTORS Obesity: Height: 5' 9", Weight: 223 DIMENSIONS LVDd5.1 (3.8-5.7cm)LA (2D)4.0 (1.9-4.0cm)Aortic Root3.4 (2.0-3.7cm) LVDs4.0 (2.5-4.0cm)LA (MM) (1.9-4.0cm)Aortic Cusp Exc1.8 (1.5-2.0cm) EF (%) 45.0 (55-70%)Rt. Atrium3.7 (1.9-4.0cm)Asc. Aorta cm IVSd1.3 (0.7-1.1cm)RV (D) (1.8-2.4cm) PWd1.3 (0.7-1.1cm) Mitral Valve MitralMitral Stenosis E wave1.40m/sMV Mean GR.mmHg A wave1.00m/sMV Peak GR.mmHg E/A ratio1.42D MVAcm2 Aortic Valve Aortic ValveAortic Stenosis V10.70m/Shanel Mean GR.6mmHg V21.80m/Shanel Peak GR.13mmHg LVOT Diameter2.3 (1.8-2.4cm)Doppler AVA1.61cm2 Other Information Quality : Technically LimitedRhythm : Technically limited study due to patient position. Conclusion LV EJECTION FRACTION IS 50% MODERATELY DILATED RV MODERATE DEGREE MR NORMAL VALVES NO EFFUSION
[2024-09-25] MEDS: ACETAMINOPHEN 500 MG TAB or CAP PO PRN (22:11)
[2024-09-26] MEDS: HYDROcodone-ACET 7.5/325MG TAB PO PRN (00:20)
[2024-09-26 07:43] VITALS: PULSE 75; RESP 18; O2SAT 98
[2024-09-26] MEDS ORDERED: CHLORTHALIDONE 25 MG TAB PO SCH (08:00)
[2024-09-26] MEDS: CHLORTHALIDONE 25 MG TAB PO SCH (08:00)
[2024-09-26 10:54] LABS: INR 1.01 (0.9-1.15); Prothrombin Time 10.7 sec (9.3-11.8)
[2024-09-26 12:18] VITALS: BP 129/80; PULSE 80; RESP 18; O2SAT 96
== END 2024-09-26 20:01 | disposition left against medical advice (07) | DRG 561 ==
LOC: ER 18:05 → TELE 22:17
PROVIDERS: ATTEND Internal Medicine
DX: O99.53 Diseases of the respiratory system complicating the puerperium (principal); J80 Acute respiratory distress syndrome; I21.A1 Myocardial infarction type 2; O14.15 Severe pre-eclampsia, complicating the puerperium; I16.0 Hypertensive urgency; I42.9 Cardiomyopathy, unspecified; Z20.822 Contact with and (suspected) exposure to COVID-19; Z53.29 Procedure and treatment not carried out because of patient's decision for other reasons; I50.32 Chronic diastolic (congestive) heart failure; O90.81 Anemia of the puerperium; O99.43 Diseases of the circulatory system complicating the puerperium; Z79.899 Other long term (current) drug therapy
CPT/HCPCS: 36415; 71045; 71275; 80053; 80061; 80307; 81001; 82570; 82728; 83010; 83036; 83540; 83550; 83615; 83735; 83880; 84156; 84300; 84443; 84484; 85025; 85045; 85379; 85610; 87426; 87804; 93306; 99291; G0378

== ENCOUNTER 2024-11-18 17:32 | Emergency (ER) | payer MEDICAID ==
[~2024-11-18] VITALS: Ht 175.3 cm; Wt 93.6 kg
--- NOTE | 2024-11-18 18:14 | ED.PDOC ---
SOB-HPI HPI Comments 34Y F with PMHx PNA presents to ED for chief complaint SOB x3days. Pt states she was recently seen at [facility] and was dx with PNA. Pt was prescribed azithromycin, furosemide, and doxycycline. Pt states SOB has worsened. No other symptoms reported. 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: Denies all PHOTOCOPYING EQUIPMENT MECHANIC Hx Family History Family History: Reviewed,noncontributory to illness Social History Smoker: Non-Smoker Alcohol: Denies ETOH Use Drugs: Denies Drug Use Lives In: Home Constitutional: denies: chills, diaphoresis, fatigue, fever, malaise, sweats, weakness, others EENTM: denies: blurred vision, double vision, ear bleeding, ear discharge, ear drainage, ear pain, ear ringing, eye pain, eye redness, hearing loss, mouth pain, mouth swelling, nasal discharge, nose bleeding, nose congestion, nose pain, photophobia, tearing, throat pain, throat swelling, voice changes, others Respiratory: reports: shortness of breath; denies: cough, hemoptysis, ort hopnea, SOB at rest, SOB with excertion, stridor, wheezing, others Cardiovascular: denies: chest pain, dizzy spells, diaphoresis, Dyspnea on exertion, edema, irregular heart beat, left arm pain, lightheadedness, palpitations, PND, syncope, others Gastrointestinal: denies: abdomen distended, abdominal pain, blood streaked bowels, constipated, diarrhea, dysphagia, difficulty swallowing, hematemesis, melena, nausea, poor appetite, poor fluid intake, rectal bleeding, rectal pain, vomiting, others Genitourinary: denies: abnormal vagina bleeding, burning, dyspareunia, dysuria, flank pain, frequency, hematuria, incontinence, pain, , vagina discharge, urgency, others Neurological: denies: dizziness, fainting, headache, left sided numbness, left sided weakness, numbness, paresthesia, pre-existing deficit, right sided numbness, right sided weakness, seizure, speech problems, tingling, tremors, weakness, others Musculoskeletal: denies: back pain, gout, joint pain, joint swelling, muscle pain, muscle stiffness, neck pain, others Integumetry: denies: bruises, change in color, change in hair/nails, dryness, laceration, lesions, lumps, rash, wounds, others Allergic/Immunocompromised: denies: Difficulty Healing, Frequent Infections, Hives, Itching, others Hematologic/Lymphatic: denies: anemia, blood clots, easy bleeding, easy bruising, swollen glands, others Endocrine: denies: excessive hunger, excessive sweating, excessive thirst, excessive urination, flushing, intolerance to cold, intolerance to heat, unexplained weight gain, unexplained weight loss, others Psychiatric: denies: anxiety, bipolar disorder, depression, hopeless, panic disorder, schizophrenia, sleepless, suicidal, others All Other Systems: Reviewed and Negative Physical Exam General Appearance: No Apparent Distress, Normal HEENT: Normal ENT Inspection, Pharynx Normal, TMs Normal Neck: Full Range of Motion, Non-Tender, Normal, Normal Inspection Respiratory: Chest Non-Tender, Lungs Clear, No Accessory Muscle Use, No Respiratory Distress, Normal Breath Sounds Cardiovascular: No Edema, No JVD, No Murmur, No Gallop, Normal Peripheral Pulses, Regular Rate/Rhythm Breast Exam: Deferred Gastrointestinal: No Organomegaly, Non Tender, No Pulsatile Mass, Normal Bowel Sounds, Soft Genitalia: Deferred Pelvic: Deferred Rectal: Deferred Extremities: No calf tenderness, Normal capillary refill, Normal inspection, Normal range of motion, Non-tender, No pedal edema Musculoskeletal : Apperance: Normal Neurologic: Alert, 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 Was a procedure done?: No Differential Dx Differential Diagnosis: Bronchitis, Pneumonia, URI X-Ray, Labs, Meds, VS Vital Signs Date Time Temp Pulse Resp B/P (MAP) Pulse Ox O2 Delivery O2 Flow Rate FiO2 11/18/24 18:35 22 99 Room Air* 0 21 21 11/18/24 18:27 102 16 99 Room Air* 0 21 11/18/24 18:27 97.6 102 16 137/89 (105) 99 97.6 11/18/24 17:46 98.6 87 20 136/81 (99) 96 Current Medications Medications (Trade) Dose Ordered Sig/Geraldo Route Start Time Stop Time Status Last Admin Albuterol (Ventolin Medneb) 2.5 mg ONCE ONCE NEB 11/18/24 18:15 11/18/24 18:16 DC 11/18/24 18:35 Ipratropium [place] (Atrovent Medneb) 0.5 mg ONCE ONCE NEB 11/18/24 18:15 11/18/24 18:16 DC 11/18/24 18:35 X-Ray, Labs, Meds, VS Comment Imaging: X-rays and CT scans were reviewed and interpreted by this provider, imaging shows no fractures and no pathological disease. Pending radiology review. Laboratory: Labs reviewed and interpreted by this provider. No significant abnormalities noted. Patient has prior medical visits reviewed. Med reconciliation performed Vital signs reviewed Time of 1ST Reevaluation: 18:30 Reevaluation 1ST: Unchanged Patient Education/Counseling: Diagnosis, Treatment, Need For Follow Up (Patient advised to follow-up in the emergency room in the next 24 to 48 hours if symptoms do not improve. Advised follow-up with PCP in the next 3 to 5 days. Patient verbalized understanding. ) Family Education/Counseling: No Family Present Departure 1 Departure Time of Disposition: 19:28 Impression: Primary Impression: Bronchitis Disposition: 01 HOME / SELF CARE / HOMELESS Condition: Fair e-Prescriptions Albuterol Sulfate (Albuterol Sulfate Hfa) 108 Mcg/Act Aer 108 MCG IN TID PRN, #1 AER Prov: HARSH RUST 11/18/24 Discharged With: Self Critical Care Note Critical Care Time?: No Stability Stability form required: No Heart Score Heart Score: Heart Score Response (Comments) Value History N/A 0 EKG N/A 0 Age N/A 0 Risk Factors N/A 0 Troponin N/A 0 Total 0 I personally scribed for HARSH RUST ([email or web address]) on 11/18/24 at 18:14. Electronically submitted by Margaret Rogers ([facility]). HARSH RUST Nov 18, 2024 18:14
[2024-11-18 18:27] VITALS: PULSE 102; RESP 16; O2SAT 99
[2024-11-18] MEDS: IPRATROPIUM BROM 0.5 MG/2.5ML INH SOL NEB ONE (18:35)
[2024-11-18] MEDS: ALBUTEROL SULF 2.5 MG/0.5ML(0.5%) NEB SOLN NEB ONE (18:35)
--- NOTE | 2024-11-18 19:08 | DVH ---
EXAM: XR Chest, 1 View CLINICAL INDICATION: sob TECHNIQUE: Frontal view of the chest. COMPARISON: XY CHEST XRAY 1 VIEW on DOS: 09/24/24 FINDINGS: LUNGS AND PLEURAL SPACES: Unremarkable. No consolidation. No pneumothorax. HEART: Unremarkable. No cardiomegaly. MEDIASTINUM: Unremarkable. Normal mediastinal contour. BONES/JOINTS: Unremarkable. No acute fracture. OTHER FINDINGS: . None. . . .. IMPRESSION: No acute cardiopulmonary process.
[2024-11-18] MEDS ORDERED: ALBU108A5 IN (19:29)
[2024-11-18 20:30] VITALS: BP 147/89; PULSE 59; RESP 18; TEMP 98.6; O2SAT 100
== END 2024-11-18 20:45 | disposition home or self-care (01) ==
LOC: ER 17:32
DX: J40 Bronchitis, not specified as acute or chronic (principal); Z98.890 Other specified postprocedural states
CPT/HCPCS: 71045; 94640